=== PATIENT | female | born 1970 | race Caucasian/White ===

== ENCOUNTER 2019-01-10 11:13 | Emergency (ER) | payer BC, OTHER ==
[2019-01-10 11:44] VITALS: BP 116/80
[2019-01-10] MEDS ORDERED: HYDROCODONE/APAP 5/325 TAB PO ONE (11:57)
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
== END 2019-01-10 12:27 | disposition home or self-care (01) ==
LOC: CED 11:13
DX: S20.211A Contusion of right front wall of thorax, initial encounter (principal); I10 Essential (primary) hypertension; W07.XXXA Fall from chair, initial encounter; Y92.59 Other trade areas as the place of occurrence of the external cause
CPT/HCPCS: 99284-ER